=== PATIENT | female | born 1995 | race Caucasian/White ===

== ENCOUNTER → 2021-10-08 13:06 | Outpatient (BNVA) | payer OTHER, SELFPAY | PROVIDERS: PCP Nurse Practitioner Adult Health; Visit Provider Nurse Practitioner Family ==

== ENCOUNTER 2023-11-13 08:48 | Outpatient (AMB) | payer MEDICAID, SELFPAY ==
--- NOTE | 2023-11-13 08:50 | MHC.OFFVIS ---
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 Denies any past or recent trauma, injury or falls. Patient reports about 2 years ago she woke up in widespread diffuse body pain affecting her joints but has had joint pain since age of 13. She would like to focus on her shoulder pain today as this has been affecting most of her ADLs, functioning, sleep, mood, social interactions and quality of life. She is right hand dominant. Works as 6th grade teacher in the [employer] as well as pursuing her Doctorate degree in Medical Anthropology. She reports increase shoulder pain, especially on the left, with range of motion, overhead reaches or raising her left shoulder. Patient presents with localized posterior and lateral left shoulder tenderness and global mild tenderness of right shoulder. Her range of motion are normal. Patient reports undergoing 2 Rheumatology evaluations and was told there was no evidence for underlying or inflammatory arthritis or RA. Her CRP was 11.5 and ESR was 8 on 08/03/23. CBC and comprehensive metabolic profile were normal. Patient has been managing her symptoms with Tylenol, NSAIDs, and vapping marijuana to help her pain and sleep. Denies prior shoulder or spine surgery or injections. She has been diagnosed with Tourette's syndrome in her preteen years and reports motor tics have been isolated mainly to her chest and upper back. Episodes occur 3-4 times per month and once or twice so severe that she is not able to get out of bed. Patient tries to stay physically activity by incorporating daily walking and loosing weight. Patient reports she tried to loose weight in the past but this did not improve her symptoms. Denies any fever, chills, dizziness, chest pain, shortness of breaths, rash, infection, weakness, numbness, tingling, bladder or bowel dysfunction or saddle anesthesia. Location Bilateral arms and hand, mid and lower back, left thigh Duration Chronic pain for >2 years Characteristics of symptom or complaint Sharp, stabbing, aching Aggravating or associated factors Movement, stress, range of motion, overhead reaches, writing, computer work Relieving factors Tylenol, NSAIDs, THC for pain and sleep Treatment Pelvic floor PT, weight loss, walking PFSH Medical History Pharyngitis Moderate clonazepam dependence Needle phobia History of obsessive compulsive disorder Benzodiazepine dependence in remission Clumsiness Depression Anxiety Surgical History History of cholecystectomy History of tonsillectomy Family History Mother Thyroid disease HTN (hypertension) Anorexia Father No problems noted. Maternal Grandmother Heart disease Diabetes Maternal Grandfather Diabetes Sister Age: 23 Depression Brother Depression Social History Alcohol intake: current Alcohol intake frequency: holidays/special occasions only Patient Tobacco Use Status: Never used Tobacco Substance Use Type: Marijuana Review of Systems Const All systems reviewed & are unremarkable except as noted in HPI and below Physical Exam Vital Signs: Last Vital Signs Pulse 98 11/13/23 08:56 BP 131/80 11/13/23 08:56 Pulse Ox 99 11/13/23 08:56 Oxygen Delivery Method Room Air 11/13/23 08:56 BMI result Body Mass Index 35.5 General: Appears afebrile. Alert and oriented. Mood and affect appropriate. Follows and participates in conversation appropriately. Respiratory effort is unlabored. No cough. Wearing face mask. Able to transition from sit to stand unassisted. Ambulates with bilaterally normal heel strike and toe off. Neck Neck: Yes full ROM, Yes no lymphadenopathy, Yes supple, No anterior neck swelling, Yes no JVD and Yes prominent dorsocervical fat pad Back/Spine/Pelvis Cervical Spine: cervical ROM normal, cervical muscular tenderness and No Cervical spine tenderness Thoracic/Lumbar Spine: thoracic and lumbar spine normal to inspection, No Thoracic/lumbar spine scar(s), thoraco-lumbar ROM normal, pain with thoraco-lumbar ROM, No thoracic spinal tenderness and lumbar spinal tenderness at L4 and at L5 Sacroiliac joints: bilaterally (left>right) tender to palpation Extrem General: Yes capillary refill normal, Yes no clubbing, cyanosis or edema and Yes no calf tenderness Right upper extremity: shoulder/upper arm Details: normal to inspection, tenderness (global tenderness) and normal ROM; no swelling, no ecchymosis, no crepitus and no unusual warmth Left upper extremity: shoulder/upper arm (Mild pain with overhead reaches. Painful arc) Details: inspection abnormal, tenderness Location: of the A-C joint, over the biceps tendon, over the subacromial bursa and over the deltoid bursa and normal ROM; no swelling, no ecchymosis, no crepitus and no unsual warmth Psych Appearance: grossly normal Mental Status: mental status grossly normal Speech and movement: Normal speech and movement present Affect: normal affect Attitude: cooperative Thought process: Normal thought process present Thought content: Normal thought content present, suicidality (none), no hallucinations and No Depressive thoughts present Insight: Good insight present (Psych) Judgement: Good judgement present (Psych) Results Reviewed Results Reviewed: No imaging or reports are available for review today. Assessment & Plan Assessment & Plan (1) Bilateral shoulder pain: Code(s): M25.511 - Pain in right shoulder; M25.512 - Pain in left shoulder (2) Painful arc syndrome of left shoulder: Code(s): M75.102 - Unspecified rotator cuff tear or rupture of left shoulder, not specified as traumatic (3) Tourette's syndrome: Comment: pre-teen onset Code(s): F95.2 - Tourette's disorder (4) Polyarthralgia: Code(s): M25.50 - Pain in unspecified joint (5) Low back pain: Code(s): M54.50 - Low back pain, unspecified (6) Bilateral shoulder pain: Code(s): M25.511 - Pain in right shoulder; M25.512 - Pain in left shoulder (7) Polyarthralgia: Code(s): M25.50 - Pain in unspecified joint (8) Low back pain: Code(s): M54.50 - Low back pain, unspecified Plan Bilateral shoulder xray to assess degree of arthritis prior to any interventional treatments. Patient with polyarthralgia with prior elevated CRP levels. Will order extended labs to rule out RA and other inflammatory conditions. Script provided for lidocaine patches. Continue Tylenol, NSAIDs, good posture, weight optimization, well-balanced diet, daily physical activity, and adequate hydration. Recommend skilled PT and home exercise program as well. All quetions and concerns have been answered and patient agreed with the plan. Follow up for xray results and sooner as needed. Orders: Orders XR shoulder RT min 2V Today M25.511 - Pain in right shoulder, M25.512 - Pain in left shoulder, M75.102 - Unspecified rotator cuff tear or rupture of left shoulder, not specified as traumatic DNA Double Stranded-Crithidia Today F95.2 - Tourette's disorder, M25.50 - Pain in unspecified joint, M54.50 - Low back pain, unspecified Rheumatoid Factor Today F95.2 - Tourette's disorder, M25.50 - Pain in unspecified joint, M54.50 - Low back pain, unspecified XR shoulder LT min 2V Today M25.511 - Pain in right shoulder, M25.512 - Pain in left shoulder, M75.102 - Unspecified rotator cuff tear or rupture of left shoulder, not specified as traumatic Cyclic Citrullinated Peptide Today F95.2 - Tourette's disorder, M25.50 - Pain in unspecified joint, M54.50 - Low back pain, unspecified MONAE Reflex Titer and Pattern Today F95.2 - Tourette's disorder, M25.50 - Pain in unspecified joint, M25.511 - Pain in right shoulder, M25.512 - Pain in left shoulder, M54.50 - Low back pain, unspecified CRP High Sensitivity Today F95.2 - Tourette's disorder, M25.50 - Pain in unspecified joint, M54.50 - Low back pain, unspecified Erythrocyte Sedimentation Rate Today F95.2 - Tourette's disorder, M25.50 - Pain in unspecified joint, M54.50 - Low back pain, unspecified Medications: New lidocaine 5% 1 patch topical DAILY 30 ea 3RF pain 30 days M25.50 - Pain in unspecified joint, M25.511 - Pain in right shoulder, M25.512 - Pain in left shoulder, M54.50 - Low back pain, unspecified Coding Level of Care Code New Pt Level 4 (15583) Diagnoses Bilateral shoulder pain M25.511; M25.512 Painful arc syndrome of left shoulder M75.102 Tourette's syndrome F95.2 Polyarthralgia M25.50 Low back pain M54.50
[2023-11-13 08:56] VITALS: BP 131/80; PULSE 98; O2SAT 99; BMI 35.5
== END 2023-11-13 09:32 | disposition home or self-care (01) ==
PROVIDERS: PCP Nurse Practitioner Adult Health; Visit Provider Nurse Practitioner Family
DX: M25.511 Pain in right shoulder (principal); M25.512 Pain in left shoulder; M75.102 Unspecified rotator cuff tear or rupture of left shoulder, not specified as traumatic; F95.2 Tourette's disorder; M25.50 Pain in unspecified joint; M54.50 Low back pain, unspecified
CPT/HCPCS: 99204

== ENCOUNTER → 2023-11-13 08:48 | Outpatient (BNVA) | payer MEDICAID, SELFPAY | PROVIDERS: PCP Nurse Practitioner Adult Health; Visit Provider Nurse Practitioner Family | DX: M25.511 Pain in right shoulder (principal); M75.102 Unspecified rotator cuff tear or rupture of left shoulder, not specified as traumatic; M25.50 Pain in unspecified joint; M54.50 Low back pain, unspecified; F95.2 Tourette's disorder | CPT/HCPCS: 99202 ==